=== PATIENT | female | born 1990 | race Hispanic/Latino ===

== ENCOUNTER 2019-01-08 15:27 | Inpatient (IN) | payer MEDICAID ==
[2019-01-08 17:17] LABS: BASO % 0.3 % (0.0-2.0); EOS # 0.1 K/uL (0.0-0.7); EOS % 0.9 % (0.0-4.0); HEMOGLOBIN 10.3 g/dL (11.0-16.0); LYMPH # 1.4 K/uL (1.0-4.3); LYMPH % 18.3 % (20.0-40.0); MEAN CELL VOLUME 77.9 fL (81.0-99.0); MEAN CORPUSCULAR HEMOGLOBIN 26.4 pg (27.0-31.0); MEAN CORPUSCULAR HGB CONC 33.9 g/dL (33.0-37.0); MEAN PLATELET VOLUME 7.6 fL (7.2-11.7); MONO # 0.7 K/uL (0.0-0.8); MONO % 8.8 % (0.0-10.0); NEUT # 5.4 K/uL (1.8-7.0); NEUT % 71.7 % (50.0-75.0); RBC 3.89 Mil/uL (3.80-5.20); RED CELL DISTRIBUTION WIDTH 14.8 % (11.5-14.5); WHITE BLOOD COUNT 7.5 K/uL (4.8-10.8)
[2019-01-08 17:35] LABS: ALB/GLOB RATIO 1.1 (1.0-2.1); ALBUMIN 3.2 g/dL (3.5-5.0); ALT/SGPT 22 U/L (9-52); AST/SGOT 18 U/L (14-36); BLOOD UREA NITROGEN 8 mg/dL (7-17); GFR NON-AFRICAN AMERICAN > 60
[2019-01-08 17:38] LABS: BARBITURATES, UR NEGATIVE (NEGATIVE); OPIATES, UR NEGATIVE (NEGATIVE); PHENCYCLIDINE, UR NEGATIVE (NEGATIVE)
[2019-01-08 17:45] LABS: SQUAMOUS EPITHIAL < 1 /hpf (0-5); URINE BACTERIA OCC (<OCC); URINE BILIRUBIN NEGATIVE (NEGATIVE); URINE BLOOD NEGATIVE (NEGATIVE); URINE CLARITY Hazy (Clear); URINE COLOR Yellow (YELLOW); URINE GLUCOSE (UA) NORMAL (Normal); URINE LEUKOCYTE ESTERASE 2+ Leu/uL (Negative); URINE PROTEIN NEGATIVE (NEGATIVE); URINE UROBILINOGEN NORMAL mg/dL (0.2-1.0)
[2019-01-08 17:56] LABS: HCG,QUALITATIVE URINE POSITIVE (NEGATIVE)
--- NOTE | 2019-01-08 18:04 | C.PDOC ---
History Of Present Illness 28-year-old female, who states she is currently 26 weeks and is a chronic heroin and benzo user, presents to the ED requesting detox. Patient states she last used on 01/07 at 3am. Patient states she is experiencing withdrawals and has some body aches. She denies suicidal/homicidal ideation and does not offer any additional complaints at this time. <Megan Holguin - Last Filed: 01/08/19 18:51> History Per: Patient History/Exam Limitations: no limitations Onset/Duration Of Symptoms: Hrs Current Symptoms Are (Timing): Still Present Modifying Factor(s): Other (heroin, benzo ) Associated Symptoms: denies: Suicidal Thoughts, Suicidal Plan Involuntary Hold By: None Recent travel outside of the [place]: No Additional History Per: Patient <Megan Holguin - Last Filed: 01/08/19 18:51> <Anuj Monae - Last Filed: 01/08/19 20:17> Time Seen by Provider: 01/08/19 16:16 Chief Complaint (Nursing): Substance Abuse Past Medical History Reviewed: Historical Data, Nursing Documentation, Vital Signs Vital Signs: Last Vital Signs Temp 97.2 F L 01/08/19 16:07 Pulse 77 01/08/19 16:07 Resp 18 01/08/19 16:07 BP 115/54 L 01/08/19 16:07 Pulse Ox 97 01/08/19 16:07 Primary Care Provider: FAMILY PROVIDER,NO - Medical History PMH: No Chronic Diseases Surgical History: No Surg Hx Family History: States: Unknown Family Hx - Social History Hx Alcohol Use: No Hx Substance Use: Yes - Immunization History Hx Tetanus Toxoid Vaccination: No Hx Influenza Vaccination: No Hx Pneumococcal Vaccination: No <Megan Holguin - Last Filed: 01/08/19 18:51> Vital Signs: Last Vital Signs Temp 98.3 F 01/08/19 20:11 Pulse 92 H 01/08/19 20:11 Resp 20 01/08/19 20:11 BP 112/68 01/08/19 20:11 Pulse Ox 97 01/08/19 20:11 <Anuj Monae - Last Filed: 01/08/19 20:17> Review Of Systems Musculoskeletal: Positive for: Other (generalized body aches ) Psych: Positive for: Withdrawal, Other (heroin and benzo detox ). Negative for: Suicidal ideation <MerarybarbPinkyMegan C - Last Filed: 01/08/19 18:51> Physical Exam - Physical Exam Appears: Non-toxic, No Acute Distress, Other (thin appearing female ) Skin: Normal Color, Warm, Dry Head: Atraumatic, Normacephalic Eye(s): bilateral: Normal Inspection Oral Mucosa: Moist Throat: No Erythema, No Exudate Neck: Normal ROM, Supple Chest: Symmetrical, No Deformity, No Tenderness Cardiovascular: Rhythm Regular, No Murmur Respiratory: Normal Breath Sounds, No Rales, No Rhonchi, No Wheezing Gastrointestinal/Abdominal: Soft, No Tenderness, No Guarding, No Rebound Extremity: Normal ROM, Capillary Refill (less than 2 seconds ) Neurological/Psych: Oriented x3, Normal Speech, Normal Cognition <Megan Holguin - Last Filed: 01/08/19 18:51> ED Course And Treatment - Laboratory Results Result Diagrams: 01/08/19 17:07 01/08/19 17:07 Lab Results: Total Bilirubin 0.2 mg/dL (0.2-1.3) 01/08/19 17:07 AST 18 U/L (14-36) 01/08/19 17:07 ALT 22 U/L (9-52) 01/08/19 17:07 Alkaline Phosphatase 87 U/L (38-126) 01/08/19 17:07 Total Protein 6.1 g/dL (6.3-8.3) L 01/08/19 17:07 Albumin 3.2 g/dL (3.5-5.0) L 01/08/19 17:07 Globulin 2.9 gm/dL (2.2-3.9) 01/08/19 17:07 Albumin/Globulin Ratio 1.1 (1.0-2.1) 01/08/19 17:07 Urine Color Yellow (YELLOW) 01/08/19 17:07 Urine Clarity Hazy (Clear) 01/08/19 17:07 Urine pH 5.0 (5.0-8.0) 01/08/19 17:07 Ur Specific [place] 1.027 (1.003-1.030) 01/08/19 17:07 Urine Protein Negative mg/dL (NEGATIVE) 01/08/19 17:07 Urine Glucose (UA) Normal mg/dL (Normal) 01/08/19 17:07 Urine Ketones 1+ mg/dL (NEGATIVE) H 01/08/19 17:07 Urine Blood Negative (NEGATIVE) 01/08/19 17:07 Urine Nitrate Negative (NEGATIVE) 01/08/19 17:07 Urine Bilirubin Negative (NEGATIVE) 01/08/19 17:07 Urine Urobilinogen Normal mg/dL (0.2-1.0) 01/08/19 17:07 Ur Leukocyte Esterase 2+ Kay/uL (Negative) H 01/08/19 17:07 Urine WBC (Auto) 8 /hpf (0-5) H 01/08/19 17:07 Urine RBC (Auto) 2 /hpf (0-3) 01/08/19 17:07 Ur Squamous Epith Cells < 1 /hpf (0-5) 01/08/19 17:07 Urine Bacteria Occ (<OCC) H 01/08/19 17:07 Urine HCG, Qual Positive (NEGATIVE) 01/08/19 17:07 Urine HCG, Qual Positive (NEGATIVE) 01/08/19 17:07 O2 Sat by Pulse Oximetry: 97 (on RA ) Pulse Ox Interpretation: Normal <Megan Holguin - Last Filed: 01/08/19 18:51> - Laboratory Results Result Diagrams: 01/08/19 17:07 01/08/19 17:07 Lab Results: Total Bilirubin 0.2 mg/dL (0.2-1.3) 01/08/19 17:07 AST 18 U/L (14-36) 01/08/19 17:07 ALT 22 U/L (9-52) 01/08/19 17:07 Alkaline Phosphatase 87 U/L (38-126) 01/08/19 17:07 Total Protein 6.1 g/dL (6.3-8.3) L 01/08/19 17:07 Albumin 3.2 g/dL (3.5-5.0) L 01/08/19 17:07 Globulin 2.9 gm/dL (2.2-3.9) 01/08/19 17:07 Albumin/Globulin Ratio 1.1 (1.0-2.1) 01/08/19 17:07 Urine Color Yellow (YELLOW) 01/08/19 17:07 Urine Clarity Hazy (Clear) 01/08/19 17:07 Urine pH 5.0 (5.0-8.0) 01/08/19 17:07 Ur Specific [place] 1.027 (1.003-1.030) 01/08/19 17:07 Urine Protein Negative mg/dL (NEGATIVE) 01/08/19 17:07 Urine Glucose (UA) Normal mg/dL (Normal) 01/08/19 17:07 Urine Ketones 1+ mg/dL (NEGATIVE) H 01/08/19 17:07 Urine Blood Negative (NEGATIVE) 01/08/19 17:07 Urine Nitrate Negative (NEGATIVE) 01/08/19 17:07 Urine Bilirubin Negative (NEGATIVE) 01/08/19 17:07 Urine Urobilinogen Normal mg/dL (0.2-1.0) 01/08/19 17:07 Ur Leukocyte Esterase 2+ Kay/uL (Negative) H 01/08/19 17:07 Urine WBC (Auto) 8 /hpf (0-5) H 01/08/19 17:07 Urine RBC (Auto) 2 /hpf (0-3) 01/08/19 17:07 Ur Squamous Epith Cells < 1 /hpf (0-5) 01/08/19 17:07 Urine Bacteria Occ (<OCC) H 01/08/19 17:07 Urine HCG, Qual Positive (NEGATIVE) 01/08/19 17:07 Urine HCG, Qual Positive (NEGATIVE) 01/08/19 17:07 <Anuj Monae - Last Filed: 01/08/19 20:17> Medical Decision Making Medical Decision Making: Progress: Bloodwork, urinalysis and OB Transvaginal Ultrasound ordered. 'The patient is medically cleared. The case was discussed with Dr. Balderas (OBGYN oncall) who states that the patient needs an OB ultrasound for dating the to verify if she is 26 weeks. <Megan Holguin - Last Filed: 01/08/19 18:51> Disposition - Disposition Disposition Time: 18:04 - POA Present On Arrival: None <Megan Holguin - Last Filed: 01/08/19 18:51> - POA Present On Arrival: None <Anuj Monae - Last Filed: 01/08/19 20:17> - Disposition Disposition: HOSPITALIZED Condition: STABLE Forms: [facility] (Portuguese) - Clinical Impression Clinical Impression: Benzodiazepine abuse, continuous - PA / PRINCIPAL STATISTICAL SCIENTIST / Resident Statement MD/DO has reviewed & agrees with the documentation as recorded. - Scribe Statement The provider has reviewed the documentation as recorded by the Scribe (Letitia Rouse) All medical record entries made by the Scribe were at my direction and personally dictated by me. I have reviewed the chart and agree that the record accurately reflects my personal performance of the history, physical exam, medical decision making, and the department course for this patient. I have also personally directed, reviewed, and agree with the discharge instructions and disposition. <Megan Holguin - Last Filed: 01/08/19 18:51> Physician Patient Turnover Patient Signed Over To: Anuj Monae Handoff Comments: Pending Ultrasounds and dispo <Megan Holguin - Last Filed: 01/08/19 18:51> Decision To Admit <Megan Holguin - Last Filed: 01/08/19 18:51> - Pt Status Changed To: Hospital Disposition Of: Inpatient - Admit Certification Admit to Inpatient:: After my assessment, the patient will require hospitalization for at least two midnights. This is because of the severity of symptoms shown, intensity of services needed, and/or the medical risk in this patient being treated as an outpatient. - InPatient: Physician Admission Certification: I certify that this patient requires 2 or mo re midnights of care for the following reason:: After my assessment, the patient will require hospitalization for at least two midnights. This is because of the severity of symptoms shown, intensity of services needed, and/or the medical risk in this patient being treated as an outpatient. - . Bed Request Type: Detox Admitting Physician: Oscar Fischer <Anuj Monae - Last Filed: 01/08/19 20:17> - . Patient Diagnosis: Benzodiazepine abuse, continuous
[2019-01-08 19:05] LABS: BENZODIAZEPINES, UR POSITIVE (NEGATIVE)
--- NOTE | 2019-01-09 08:33 | PCM.PSYCH ---
Initial Psychiatric Evaluation - Initial Psychiatric Evaluation Type of Admission: Voluntary Legal Status: Capacity Chief Complaint (in patient's own words): "Not good" History of Present Illness and Precipitating Events: The patient is seen, chart reviewed and case discussed. 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 The patient admits to using up to 50 bags of IV heroin since August. She first started 6 years ago and she had been to detox close to 20 times because she was in [place] up until July and they have "short detoxes" over there. She was in rehab 3 times. She also OD did 3 times and last one was within 6 months. The patient is also using Xanax up to 6 mg for the past 5 years. She does have withdrawal symptoms and she had a seizure recently. She denies alcohol and other drugs and smokes 1 or 2 cigarettes a day. Past psych history: She was diagnosed with panic disorder and generalized anxiet y. She states Xanax, gabapentin and Seroquel helped a lot. She was on 400 mg Seroquel but understands that it is a high dose especially when she is . Medical history: Denies Family psych history: Addiction Current Medications: Active Medications Generic Name Dose Route Start Last Admin Trade Name Freq PRN Reason Stop Dose Admin Diphenhydramine HCl 50 mg 01/08/19 22:09 01/08/19 22:30 Benadryl PO 50 mg HS PRN Administration Insomnia Multivit/Folic Acid/Iron 1 tab 01/09/19 10:00 PO DAILY CATIA Past Psychiatric History - Past Psychiatric History Previous Treatment History: Intensive Outpatient Pertinent Medical Hx (Current Medical&Sleep Prob, Allergies): Allergies Allergy/AdvReac Type Severity Reaction Status Date / Time amoxicillin Allergy Verified 01/08/19 16:13 Alprazolam [Xanax] 2 mg PO TID 01/08/19 Gabapentin 600 mg PO TID 01/08/19 Quetiapine Fumarate [Seroquel] 400 mg PO HS 01/08/19 Review of Systems - Neurological Neurological: UNREMARKABLE - Psychiatric Psychiatric: Abnormal Sleep Pattern, Anhedonia, Anxiety, Depression, Difficulty Concentrating, Irritability, Mood Swings. absent: Hallucinations, Homicidal Ideation, Paranoia, Suicidal Ideation Mental Status Examination - Personal Presentation Personal Presentation: Looks stated age - Affect Affect: Constricted - Motor Activity Motor Activity: Calm - Reliability in Providing Information Reliability in Providing Information: Good - Speech Speech: Organized - Mood Mood: Depressed, Anxious - Formal Thought Process Formal Thought Process: No Impairment - Cognitive Functions Orientation: Person, Place, Situation, Time Sensorium: Alert Attention/Concentration: Attentive Estimate of Intelligence: Average Judgement: Intact, as evidence by: Insight regarding need for hospitalization Memory: Recent intact, as evidence by: Ability to recall events of the day, Remote intact, as evidenced by: Abilit to recall sig. 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 Attend groups and activities Supportive therapy and psychoeducation [place] for abstinence CBT for relapse prevention Encourage MAT Refer to rehab or IOP, and self-help groups Teach healthy lifestyle methods, i.e. diet, exercise, meditation Smoking cessation with [place] Nicotine patch if needed 34 min Projected ELOS: 4 days
--- NOTE | 2019-01-09 08:43 | US ---
Date of service: 2019-01-08 19:10:03 PROCEDURE: Obstetrical ultrasound examination HISTORY: 26 weeks, complete dating pregnacy ultrasound COMPARISON: Not available TECHNIQUE: Transabdominal FINDINGS: The examination demonstrates a single live intrauterine gestation in cephalic presentation. The heart rate is 158 beats per minute. A grossly normal quantity of amniotic fluid is visualized. The JENNIFER is 12.08 cm. An anterior placenta is noted. There is no evidence of placenta previa. The cervix is closed and measures 3.2 cm in length. biometry yields a gestational age of 27 weeks 3 days. The VINNIE by ultrasound is 04/06/2019. The femur length/head circumference ratio is just above the normal range but likely not significant. The EFW is 1068 g. Limited review of anatomy demonstrates fluid distending the stomach and urinary bladder. A 4 chamber heart is identified. A three-vessel umbilical cord is identified. The anterior abdominal wall is intact. No gross abnormality of the spine is evident. Two normal kidneys are identified without evidence of hydronephrosis. Umbilical arterial duplex Doppler evaluation demonstrates a S/D ratio of 2.6, within normal limits. IMPRESSION: Single live intrauterine gestation of approximately 27 weeks 3 days gestational age. EFW 1068 g. VINNIE 04/06/2019. No anatomic abnormality identified. Limited anatomic evaluation. heart rate 158 beats per minute. Anterior placenta. No previa. Cervix long and closed. The preliminary findings for this examination were reported by [facility] at 8:03 p.m. on 01/08/2019. There is concurrence of this report with the preliminary findings.
[2019-01-09] MEDS: Prenatal Multivit/Folic Acid/Iron Tab PO SCH (09:23)
--- NOTE | 2019-01-09 13:43 | PCM.BM ---
<Paris Christain - Last Filed: 01/09/19 13:42> Treatment Plan Problems - Problems identified on initial assessmt Denial Date Initiated: 01/09/19 Assessment reference: NA Status: Active Defensive Coping Date Initiated: 01/09/19 Assessment reference: NA Status: Active Chronic Low Self Esteem Date Initiated: 01/09/19 Assessment reference: NA Status: Active Treatment assets and liabiliti Patient Assests: adapts well, cooperative, ADL independent, negotiates basic needs Patient Liabilities: substance abuse, other - Milieu Protocol Maintain good personal hygiene: daily Encourage regular showers, daily Remind patient to perform daily oral care, daily Assist patient to perform ADL's Conduct patient checks and document Observation sheet: Q15 minutes Maintain personal safety: every shift Educate patient to report safety concerns to staff, every shift Monitor environment for contraband/sharps Medication safety: Monitor for expected outcome, potential side effects: every shift, Assess barriers to learning: every shift, Assess readiness for medication education: every shift <Lauri Cabrera - Last Filed: 01/10/19 10:31> - Diagnosis (1) Benzodiazepine abuse, continuous Status: Acute Interventions: 01/10/19 10:31 * Assess 7x/week regarding severity of withdrawal * Educate regarding risks, benefits, side effects and alternatives of medications * Use Motivational Interviewing for abstinence * Use CBT for relapse prevention * Medication management for withdrawal symptoms * Encourage medication assisted treatment * (2) Opioid use disorder, severe, dependence Status: Acute Interventions: 01/10/19 10:31 * Assess 7x/week regarding severity of withdrawal * Educate regarding risks, benefits, side effects and alternatives of medications * Use Motivational Interviewing for abstinence * Use CBT for relapse prevention * Medication management for withdrawal symptoms * Encourage medication assisted treatment * <Isabelle More - Last Filed: 01/12/19 09:01> Family Contact Family involvement: Family/SO is involved Family contact name: parents Family contacted how many times per week?: 2 - Goals for Treatment Patient goals for treatment: Complete detox and transition to outpatient therapy. Discharge/Continuing Care - Education Needs Education Needs: Family Diagnosis/Disease Process, Family Community resources, Patient Medication, Patient Diagnosis/Disease Process, Patient Coping Skills, Patient Anger Management skills, Patient Placement options, Patient Community resources - Discharge Discharge Criteria: No longer exhibiting s/s of withdrawal, Reduction of target symptoms Discharge to:: Home, With Family - Treatment Team Participation Patient/Family/SO Statement: 01/12/19 09:01 "[facility] Discussed with Family/SO: No Was Patient/Family/SO present at Treatment Team Meeting: Yes
[2019-01-09 20:48] LABS: HEPATITIS B SURFACE AG Negative (NEGATIVE)
[2019-01-09 20:53] LABS: HEPATITIS A IGM NEGATIVE (NEGATIVE); HEPATITIS B CORE AB NEGATIVE (NEGATIVE)
[2019-01-09 21:21] LABS: RAPID PLASMA REAGIN NONREACTIVE (NONREACTIVE)
[2019-01-09 22:55] LABS: HEPATITIS C ANTIBODY REACTIVE (NEGATIVE)
[2019-01-10] MEDS: Prenatal Multivit/Folic Acid/Iron Tab PO SCH (09:14)
--- NOTE | 2019-01-10 11:06 | PCM.PYCHPN ---
Mental Status Examination - Cognitive Function Orientation: Person, Place, Situation, Time - Mood Mood: Depressed, Anxious - Affect Affect: Constricted - Formal Thought Process Formal Thought Process: No Impairment
[2019-01-11] MEDS: Prenatal Multivit/Folic Acid/Iron Tab PO SCH (09:00)
[2019-01-11] MEDS ORDERED: Aluminum Hydroxide/Magnesium Hydroxide Susp (30 mL) PO ONE (19:19)
--- NOTE | 2019-01-12 07:54 | PCM.PYCHDC ---
Mental Status Examination - Mental Status Examination Orientation: Person Discharge Summary - Discharge Note Consultations:: List each consultation separately and include: 1. Reason for request. 2. Findings. 3. Follow-up Summary of Hospital Course include:: 1. Description of specific treatment plan utilized for patients during their course of treatmen. 2. Summarize the time- course for resolution of acute symptoms and/or regressed behaviors. 3. Describe issues identified and worked on during hospitalization. 4. Describe medication utilized. 5. Describe medical problems identified and treated. 6. Reassessment of suicide risk Summary of Hospital Course: The patient is seen, chart reviewed and case discussed. 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 The patient admits to using up to 50 bags of IV heroin since August. She first started 6 years ago and she had been to detox close to 20 times because she was in [place] up until July and they have "short detoxes" over there. She was in rehab 3 times. She also OD did 3 times and last one was within 6 months. The patient is also using Xanax up to 6 mg for the past 5 years. She does have withdrawal symptoms and she had a seizure recently. She denies alcohol and other drugs and smokes 1 or 2 cigarettes a day. Past psych history: She was diagnosed with panic disorder and generalized anxiety. She states Xanax, gabapentin and Seroquel helped a lot. She was on 400 mg Seroquel but understands that it is a high dose especially when she is . Medical history: Denies Family psych history: Addiction She will go to [facility] All risks of meds, incl. use in (methadone, seroquel, lorazepam, etc. all) are discussed and she understood and agreed. In fact she was asking for more, ie higher seroquel, gabapentin etc. She seemed to realize the risks. - Diagnosis (1) Benzodiazepine abuse, continuous Current Visit: Yes Status: Acute (2) Opioid use disorder, severe, dependence Current Visit: Yes Status: Acute - Final Diagnosis (DSM 5) Condition upon Discharge: FAIR Disposition: HOME/ ROUTINE Follow-up Treatment Plan: Taper with methadone Taper with ativan As needed medications All risks, benefits and alternatives of the meds discussed, including their risks in and the pt agreed and understood. Attend groups and activities Supportive therapy and psychoeducation [place] for abstinence CBT for relapse prevention Encourage MAT Refer to rehab or IOP, and self-help groups Teach healthy lifestyle methods, i.e. diet, exercise, meditation Smoking cessation with [place] Nicotine patch if needed 34 min Prescriptions/Medication Reconciliation: Multivit/Folic Acid/I [] 1 tab PO DAILY #30 tab QUEtiapine [SEROquel] 200 mg PO HS #30 tab
--- NOTE | 2019-01-12 07:54 | PCM.PYCHPN ---
Psychiatric Progress Note - Psychiatric Progress Note Patient seen today, length of contact: 16 min Patient Chief Complaint: "Still sick at times" Problems Identified/Issues Discussed: The pt is seen, chart reviewed, case discussed with staff. The pt is compliant with medications and reports no side-effects. Symptoms are improving but needs more time to stabilize. Pt attends groups and activities. Support given, psycho-education provided. Risks of med and drug use in discussed After care discussed. Medication Change: Yes (detox changes daily) Medical Record Reviewed: Yes Mental Status Examination - Cognitive Function Orientation: Person, Place, Situation, Time Memory: Intact Attention: WNL Concentration: WNL Association: [facility] Fund of Knowledge: [facility] - Mood Mood: Depressed, Anxious - Affect Affect: Constricted - Speech Speech: Appropriate - Formal Thought Process Formal Thought Process: No Impairment - Suicidal Ideation Suicidal Ideation: No - Homicidal Ideation Homicidal Ideation: No Goal/Treatment Plan - Goal/Treatment Plan Need for Continued Stay: Discharge may exacerbated symptoms, Severe functional impairment Progress Toward Problem(s) and Goals/Treatment Plan: Taper with methadone Taper with ativan As needed medications All risks, benefits and alternatives of the meds discussed, including their risks in and the pt agreed and understood. Attend groups and activities Supportive therapy and psychoeducation [place] for abstinence CBT for relapse prevention Encourage MAT Refer to rehab or IOP, and self-help groups Teach healthy lifestyle methods, i.e. diet, exercise, meditation Smoking cessation with MT Nicotine patch if needed
[2019-01-12] MEDS: Prenatal Multivit/Folic Acid/Iron Tab PO SCH (09:00)
[2019-01-12 09:36] VITALS: BP 110/66; PULSE 100; RESP 20; TEMP 97.5; O2SAT 99
== END 2019-01-12 09:20 | disposition home or self-care (01) | DRG 886 ==
LOC: C.ER 15:27 → C.7D 20:15
PROC: HZ2ZZZZ Detoxification Services for Substance Abuse Treatment (ICD-10-PCS; principal; 2019-01-08)
PROC: HZ52ZZZ Individual Psychotherapy for Substance Abuse Treatment, Cognitive-Behavioral (ICD-10-PCS; 2019-01-08)
PROC: HZ59ZZZ Individual Psychotherapy for Substance Abuse Treatment, Supportive (ICD-10-PCS; 2019-01-08)
PROC: HZ56ZZZ Individual Psychotherapy for Substance Abuse Treatment, Psychoeducation (ICD-10-PCS; 2019-01-08)
PROC: HZ42ZZZ Group Counseling for Substance Abuse Treatment, Cognitive-Behavioral (ICD-10-PCS; 2019-01-08)
PROC: HZ46ZZZ Group Counseling for Substance Abuse Treatment, Psychoeducation (ICD-10-PCS; 2019-01-08)
PROC: GZHZZZZ Group Psychotherapy (ICD-10-PCS; 2019-01-08)
PROC: GZ58ZZZ Individual Psychotherapy, Cognitive-Behavioral (ICD-10-PCS; 2019-01-08)
PROC: GZ56ZZZ Individual Psychotherapy, Supportive (ICD-10-PCS; 2019-01-08)
DX: O99.322 Drug use complicating pregnancy, second trimester (principal); F11.23 Opioid dependence with withdrawal; F13.230 Sedative, hypnotic or anxiolytic dependence with withdrawal, uncomplicated; F41.1 Generalized anxiety disorder; O99.342 Other mental disorders complicating pregnancy, second trimester; F41.0 Panic disorder [episodic paroxysmal anxiety]; F17.210 Nicotine dependence, cigarettes, uncomplicated; O99.332 Smoking (tobacco) complicating pregnancy, second trimester; Z3A.27 27 weeks gestation of pregnancy